=== PATIENT | male | born 1935 | race Caucasian/White ===

== ENCOUNTER 2017-09-21 02:31 | Observation (INO) ==
[2017-09-21] MEDS ORDERED: Aspirin 81 MG TAB.CHEW PO ONE (02:37)
[2017-09-21] MEDS ORDERED: Nitroglycerin 1 INCH/GM PACKET TP ONE (02:37)
[2017-09-21] MEDS ORDERED: Furosemide 40 MG/4 ML VIAL IVP ONE (02:39)
--- NOTE | 2017-09-21 02:39 | Emergency Department Note ---
Disposition Clinical Impression: Atypical chest pain Chest pain Qualifiers: Chest pain type: precordial pain Qualified Code(s): R07.2 - Precordial pain Disposition: Admitted As Inpatient Condition: Fair Referrals: Aden Freeman MD [Primary Care Provider] - Chest Pain HPI - General Stated Complaint: Chest Pain Time Seen by Provider: 09/21/17 02:37 Source: patient, family Mode of arrival: private vehicle Limitations: physical limitation (Parkinson's, persistent tremor), age Vital Signs Reviewed: Yes Nursing Notes Reviewed: Yes - History of Present Illness HPI Narrative: Patient relates she is at rest when he had onset of a midsternal chest pain about 90 minutes prior to arrival. He states that he was afraid that he was having a heart attack has come in for evaluation. He states his pain is gone away prior to his arrival. Had some mild dyspnea but no cough, fevers or chills. Denies diaphoresis or nausea. He has chronic lower extremity swelling without any new swelling or pain. He was concerned for his blood pressure and took an extra metoprolol. He denies pain radiating to his jaw, back or arms. He cannot specify any other complaints other than he just "did not feel well". He denies known history of heart disease and denies any type of previous stent or bypass. Pt complaint: chest pain Onset (ago): minute(s) (90) Duration: constant, now resolved Onset: during rest Pain Location: substernal Severity: moderate Quality: aching Pain Radiation: none Improves with: nothing Worsens with: nothing Associated symptoms: Reports: dyspnea, leg swelling (Chronic). Denies: nausea, vomiting, diaphoresis, syncope, palpitations, fever, cough Treatments prior to arrival chest pain: other (An extra metoprolol) - Related Data Home Medications Medication Instructions Recorded Confirmed Carbidopa/Levodopa [Sinemet 1 each PO TID 09/21/17 09/21/17] Metoprolol [Lopressor] 100 mg PO BID 09/21/17 09/21/17 Tamsulosin [Flomax] 0.4 mg PO DAILY 09/21/17 09/21/17 Allergies Allergy/AdvReac Type Severity Reaction Status Date / Time Penicillins Allergy Hives Verified 09/21/17 02:39 All systems ED: reviewed and negative except as stated. Chest Pain PMH - Past Medical History Medical history: Reports: cardiomyopathy, CVA, hypertension, other (Parkinson's , BPH) Surgical history: Reports: herniorrhaphy, knee replacement, orthopedic, other ( Neck surgery), other Psychiatric history: Reports: no psych history - Social History Smoking Status: Former smoker Alcohol use: Reports: none Drug use: Reports: none Physical Exam - General Limitations: physical limitation (Severe Parkinsonian tremor) General appearance: in no apparent distress, anxious - Head Head exam: atraumatic, normocephalic, normal inspection - Eye Eye exam: Present: normal appearance, PERRL, EOMI. Absent: conjunctival injection - ENT ENT exam: normal exam, normal oropharynx, mucous membranes moist - Neck Neck exam: Present: normal inspection, full ROM, trachea midline - Chest Chest inspection: Present: normal inspection, symmetric chest wall rise - Respiratory Respiratory exam: Present: normal lung sounds bilaterally. Absent: respiratory distress, wheezes, prolonged expiratory phase - Cardiovascular Cardiovascular exam: Present: regular rate, normal rhythm, normal heart sounds - Abdominal Exam Abdominal exam: Present: soft, Non-Tender, normal bowel sounds. Absent: tenderness, distention, guarding, rebound, rigidity - Extremities Exam Extremities exam: Present: full ROM, normal capillary refill, pedal edema (2+). Absent: tenderness, calf tenderness - Expanded Lower Extremity Exam Neurovascular/Tendon exam: Present: normal capillary refill. Absent: motor deficit, sensory deficit, tendon deficit Gait: not tested/not observed - Neurological Exam Neurological exam: Present: alert, oriented X3 - Psychiatric Psychiatric exam: Present: normal affect, normal mood - Skin Skin exam: Present: warm, dry, intact, normal color. Absent: rash, cyanosis, diaphoresis, pallor Course Course Narrative: 0400: All testing has been discussed with the patient and his family. Family contacted to Dr. Gould is agreeable with his inpatient observation. The patient remains currently chest pain-free. Verbal orders have been obtained for his observation period Vital Signs Temperature 97.3 F L 09/21/17 02:33 Pulse Rate 73 09/21/17 02:33 Respiratory Rate 18 09/21/17 02:33 Blood Pressure 129/93 09/21/17 02:33 O2 Sat by Pulse Oximetry 98 09/21/17 02:33 Temperature 97.3 F L 09/21/17 02:33 Pulse Rate 78 09/21/17 03:56 Respiratory Rate 20 09/21/17 03:56 Blood Pressure 146/71 09/21/17 03:56 O2 Sat by Pulse Oximetry 99 09/21/17 03:56 Oxygen Delivery Oxygen Delivery Nasal Cannula Chest Pain - Differential Diagnosis Likely: atypical chest pain, chest pain - Medical Records Medical records reviewed: Yes I reviewed the patient's medical records. - Lab Data Lab results reviewed: Yes I reviewed the patient's lab results. Result diagrams: 09/21/17 02:35 09/21/17 02:35 Lab Results 09/21/17 09/21/17 09/21/17 Range/Units 02:35 02:35 02:35 WBC 3.9 L (4.3-11.1) K/mcL RBC 3.98 L (4.19-5.50) M/mcL Hgb 12.4 L (12.9-16.9) g/dL Hct 37.6 (37.5-50.1) % MCV 94.5 (83.0-100.0) fL MCH 31.2 (28.0-33.3) pg MCHC 33.0 (31.6-35.5) g/dL RDW 13.3 (11.5-14.5) % Plt Count 182 (140-400) K/mcL MPV 10.9 (9.4-12.4) fL Immature Gran % 0.8 (0-4) % Seg Neutrophils % 56.3 % Lymphocytes % 25.2 % Monocytes % 12.3 % Eosinophils % 4.9 % Basophils % 0.5 % Neutrophils # 2.2 (1.6-8.9) K/mcL Lymphocytes # 1.0 (0.6-4.6) K/mcL Monocytes # 0.5 (0.0-1.3) K/mcL Eosinophils # 0.2 (0.0-0.6) K/mcL Basophils # 0.0 (0.0-0.2) K/mcL PT 12.9 H (9.4-12.1) Seconds INR 1.2 APTT 29.5 (26.0-36.0) Seconds Sodium (136-145) mEq/L Potassium (3.5-4.5) mEq/L Chloride (98-109) mEq/L Carbon Dioxide (19-29) mEq/L BUN (8-26) mg/dL Creatinine (0.72-1.25) mg/dL Est GFR ( Amer) (> 60) Est GFR (Non-Af Amer) (> 60) BUN/Creatinine Ratio (6-26) Glucose (70-99) mg/dL Calculated Osmolality (280-300) Calcium (8.6-10.8) mg/dL Troponin I (0-0.03) ng/mL B-Natriuretic Peptide 316 H (0-100) pg/mL 09/21/17 09/21/17 Range/Units 02:35 02:35 WBC (4.3-11.1) K/mcL RBC (4.19-5.50) M/mcL Hgb (12.9-16.9) g/dL Hct (37.5-50.1) % MCV (83.0-100.0) fL MCH (28.0-33.3) pg MCHC (31.6-35.5) g/dL RDW (11.5-14.5) % Plt Count (140-400) K/mcL MPV (9.4-12.4) fL Immature Gran % (0-4) % Seg Neutrophils % % Lymphocytes % % Monocytes % % Eosinophils % % Basophils % % Neutrophils # (1.6-8.9) K/mcL Lymphocytes # (0.6-4.6) K/mcL Monocytes # (0.0-1.3) K/mcL Eosinophils # (0.0-0.6) K/mcL Basophils # (0.0-0.2) K/mcL PT (9.4-12.1) Seconds INR APTT (26.0-36.0) Seconds Sodium 142 (136-145) mEq/L Potassium 5.0 H (3.5-4.5) mEq/L Chloride 105 (98-109) mEq/L Carbon Dioxide 27 (19-29) mEq/L BUN 17 (8-26) mg/dL Creatinine 0.91 (0.72-1.25) mg/dL Est GFR ( Amer) > 60 (> 60) Est GFR (Non-Af Amer) > 60 (> 60) BUN/Creatinine Ratio 19 (6-26) Glucose 102 H (70-99) mg/dL Calculated Osmolality 296 (280-300) Calcium 9.2 (8.6-10.8) mg/dL Troponin I 0.00 (0-0.03) ng/mL B-Natriuretic Peptide (0-100) pg/mL - Radiology Data Radiology results reviewed: Yes I reviewed the patient's radiology results. Single view chest x-ray is performed. This does not demonstrate evidence for infiltrate, effusion, pneumothorax, foreign body or heart failure. The cardiac silhouette is mildly enlarged. I do not see abnormality to the osseous structures of the chest. This is on my interpretation. Impressions Chest X-Ray 09/21/17 02:37 IMPRESSION: Negative portable chest. D/ / Doc Campbell MD / Doc Campbell MD Interpreting Provider: Doc Campbell MD - EKG Data EKG attestation: Yes I reviewed and interpreted this EKG. EKG shows normal: sinus rhythm, intervals, ST-T waves [place]/QRS: left axis deviation, LBBB Interpretation: no acute changes Heart Score - Score History: Moderately Suspicious EKG: Non Specific repolarisation Disturbance Age: Greater than 65 Risk Factors: 1-2 risk factors Troponin: Less than normal limit HEART Score Total: 5
[2017-09-21 02:47] LABS: Basophils % 0.5 %; Eosinophils # 0.2 K/mcL (0.0-0.6); Eosinophils % 4.9 %; Hematocrit 37.6 % (37.5-50.1); Hemoglobin 12.4 g/dL (12.9-16.9); Immature Granulocytes % 0.8 % (0-4); Lymphocytes % 25.2 %; Mean Corpuscular Hemoglobin 31.2 pg (28.0-33.3); Mean Corpuscular Volume 94.5 fL (83.0-100.0); Mean Platelet Volume 10.9 fL (9.4-12.4); Monocytes # 0.5 K/mcL (0.0-1.3); Monocytes % 12.3 %; Neutrophils # 2.2 K/mcL (1.6-8.9); Platelet Count 182 K/mcL (140-400); Red Blood Count 3.98 M/mcL (4.19-5.50); Red Cell Distribution Width 13.3 % (11.5-14.5); Segmented Neutrophils % 56.3 %
[2017-09-21 02:52] LABS: INR 1.2; Prothrombin Time 12.9 Seconds (9.4-12.1)
[2017-09-21 02:54] LABS: Activated Partial Thrombo Time 29.5 Seconds (26.0-36.0)
[2017-09-21 03:02] LABS: BUN/Creatinine Ratio 19 (6-26); Blood Urea Nitrogen 17 mg/dL (8-26); Calcium 9.2 mg/dL (8.6-10.8); Carbon Dioxide 27 mEq/L (19-29); Chloride 105 mEq/L (98-109); Glucose 102 mg/dL (70-99); Osmolality,Calculated 296 (280-300); Sodium 142 mEq/L (136-145); eGFR For African Americans > 60 (> 60); eGFR For Non-African Americans > 60 (> 60)
[2017-09-21] MEDS ORDERED: Naloxone 0.4 MG/ML INJ IVP PRN (04:50)
[2017-09-21] MEDS ORDERED: Acetaminophen 325 MG TABLET PO PRN (04:50)
[2017-09-21] MEDS ORDERED: Furosemide 20 MG TABLET PO PRN (04:50)
[2017-09-21] MEDS ORDERED: Ondansetron 4 MG/2 ML VIAL IVP PRN (04:50)
[2017-09-21] MEDS ORDERED: MOM Conc 10 ML UD.LIQ PO PRN (04:50)
[2017-09-21] MEDS ORDERED: Nitroglycerin 1 INCH/GM PACKET TP SCH (06:00)
--- NOTE | 2017-09-21 11:49 | Internal Med History&Physical ---
Date of Encounter: 09/21/17 Time of Encounter: 11:15 Assessment and Plan (1) Chest pain Current visit: Yes Status: Acute Doubt myocardial ischemic pain based on history and physical. Repeat cardiac enzymes were ordered through emergency room. Qualifiers: Chest pain type: precordial pain Qualified Code(s): R07.2 - Precordial pain (2) Anemia Current visit: Yes Status: Acute We will order anemia testing. He states he uses occasional OTC aspirin and NSAIDs. Qualifiers: Anemia type: unspecified type Qualified Code(s): D64.9 - Anemia, unspecified (3) Parkinsons disease Current visit: No Status: Chronic He reports wearing off phenomenon at the end of his dosing interval. I will change him to Sinemet CR. (4) B12 deficiency Current visit: No Status: Chronic We will check anemia testing as per above. Internal Medicine - H&P: HPI Chief complaint: Chest pain Admitted From: Home Plans for Post Hospital Care: Home History of present illness: Mr. Schwab is a 82 year old male who came to emergency room stating he was awakened from sleep with severe discomfort in his chest. He reports it to be a "pressure pain" that radiated from his right chest to his left chest. The episodes lasted a few seconds and then resolved but would recur after a few seconds to minutes. After approximately 90 minutes he decided to come to the emergency room. He was evaluated and admitted to [facility] floor for ongoing care needs. He denies previous similar episodes of pain. He feels back to his baseline now. He does not get chest pain on the minimal amount of exertion he does. He gets dyspneic climbing steps at home and his legs have become noticeably more edematous in the past few weeks. His cardiovascular history is significant for hypertension. He denies CA heart failure DVT or pulmonary embolus. He claims his last EST was approximately 2013 and was unremarkable. Past Med Surg Social Fam HX - Past Medical History Medical history: cardiomyopathy, CVA, hypertension, other Psychiatric history: no psych history - Past Surgical History Surgical History: herniorrhaphy, knee replacement, orthopedic, other, other - Social History Smoking Status: Former smoker Smokeless Tobacco Status: No Alcohol use: none Drug use: none - Family History Brother Living Status: Hx Family Endocrine Disorder: Yes Internal Medicine - H&P: Meds Carbidopa/Levodopa [Sinemet 10/100] 1 each PO TID 09/21/17 [History] Metoprolol [Lopressor] 100 mg PO BID 09/21/17 [History] Tamsulosin [Flomax] 0.4 mg PO DAILY 09/21/17 [History] 3 Allergy/AdvReac Type Severity Reaction Status Date / Time Penicillins Allergy Hives Verified 09/21/17 02:39 All Systems PM: A 10-system review of systems was performed and is negative for pertinent findings except as documented above in the HPI. Review of systems: Review of systems from his December 2015 [facility] hospitalization were reviewed and revised as below. Gen.: His weight has decreased from 97.522 kg on 12/27/2015 to 93.44 kg on admission now. Cardiovascular: As per history of present illness Respiratory: He smoked from age [age] up to 2 packs per day. He does not wear home oxygen and has not been diagnosed with chronic lung disease. GI: He has history of esophageal strictures requiring dilatation on 2 occasions in the past. He denies disorders of his liver gallbladder or exocrine pancreas : He has BPH and is on Flomax. He denies other kidney or bladder disorders. Neurologic: He has been diagnosed with Parkinson's disease and is on Sinemet. He has old left basal ganglia infarct. Endocrine: He had a thyroid nodule removed in 2007 has not had recurrence. He denies diabetes or hyperlipidemia Hematology/oncology: Denies blood disorders or cancers. He had low B12 level at 170 December 2015 hospitalization and received an IM injection of B12. He reports his PCP has not continued oral/IM B12. Psychiatric: He has depression but no significant anxiety other mental health issues Musk skeletal: He has arthritis and history of gout. - Constitutional Vitals: Temp Pulse Resp BP Pulse Ox 97.7 F 63 18 90/61 95 09/21/17 09:10 09/21/17 09:10 09/21/17 09:10 09/21/17 09:10 09/21/17 09:10 Exam: Gen.: He is a well-developed well-nourished male lying in bed who appears in no acute distress at present time HEENT: Head is atraumatic and normocephalic. Eyes: EOMI. There is no scleral icterus. Mouth: Mucosa is moist. Neck: Supple and nontender. There is no thyromegaly or adenopathy noted. Heart: Regular without murmurs gallops or ectopics. Tones are soft Lungs: No wheezes or crackles are heard. Chest: He is not tender in his chest wall to palpation. Abdomen: Soft and nontender. No masses or guarding are noted. Extremities: There is no cyanosis or clubbing noted. He has 1-2+ edema of the dorsum of the feet and lower anterior shins bilaterally. Dorsalis pedis and posttibial pulses are nonpalpable due to the edema. Neurologic: Mental status: He is talkative and a good historian. Cranial nerves : Smile is symmetric. Forehead wrinkles bilaterally. Tongue protrudes midline. EOMI. Motor: He has significant Parkinson tremor of his arms at rest. There is no pronator drift. Cerebellar: Finger to nose intact bilaterally. Skin: Warm and dry Internal Med - H&P Results - Labs CBC & Chem 7: 09/21/17 02:35 09/21/17 02:35 Labs: Cardiac Enzymes 09/21/17 Range/Units 06:25 Troponin I 0.00 (0-0.03) ng/mL - VTE Documentation of Mechanical Device: Graduated compression elastic hosiery
[2017-09-21] MEDS: Isosorbide MONOnitrate (24 HR) 30 MG TAB.ER.24H PO SCH (12:43)
[2017-09-21] MEDS: Bumetanide 1 MG TABLET PO SCH (12:43)
[2017-09-21] MEDS: Carbidopa/Levodopa ER 50/200 TABLET PO SCH ×2 (12:44→21:30)
--- NOTE | 2017-09-21 13:14 | Electrocardiograph Report ---
[address] [place], [place] [address] Test Date: 2017-09-21 Pat Name: Rodrigo Schwab Department: 9201 Room: [facility] Gender: M Dental Service Technician: Robyn : 1935 Requested By: Jeffery Huizar Order Number: [id number] Reading MD: Hugh Gunter MD Measurements Intervals [place] Rate: 62 P: [place]: 0 QRS: -34 QRSD: 160 T: 73 QT: 467 QTc: 473 Interpretive Statements PROBABLE SINUR RHYTHM MARKED LEFT AXIS DEVIATION LEFT BUNDLE BRANCH BLOCK BASELINE ARTIFACT COMPLICATES ACCURATE INTERPRETATION BASELINE ARTIFACT, REPEAT EKG Electronically Signed On 09-21-2017 13:12:35 EST by Hugh Gunter MD
[2017-09-21] MEDS ORDERED: Bisacodyl 10 MG RECTAL SUPPOSITORY RC PRN (20:42)
[2017-09-21 22:01] LABS: % Iron Saturation 25 % (20-55); Iron 79 mcg/dL (65-175); Transferrin 223 mg/dL (174-364)
[2017-09-21 22:23] LABS: Ferritin 216 ng/ml (22-275)
[2017-09-22] MEDS: Carbidopa/Levodopa ER 50/200 TABLET PO SCH ×2 (05:15→10:47)
[2017-09-22 06:06] LABS: Basophils % 0.5 %; Eosinophils # 0.2 K/mcL (0.0-0.6); Eosinophils % 4.4 %; Hematocrit 37.9 % (37.5-50.1); Hemoglobin 12.4 g/dL (12.9-16.9); Immature Granulocytes % 0.5 % (0-4); Lymphocytes % 18.4 %; Mean Corpuscular HGB Conc 32.7 g/dL (31.6-35.5); Mean Corpuscular Hemoglobin 30.7 pg (28.0-33.3); Mean Corpuscular Volume 93.8 fL (83.0-100.0); Mean Platelet Volume 11.4 fL (9.4-12.4); Monocytes # 0.6 K/mcL (0.0-1.3); Neutrophils # 3.6 K/mcL (1.6-8.9); Platelet Count 192 K/mcL (140-400); Red Blood Count 4.04 M/mcL (4.19-5.50); Red Cell Distribution Width 13.3 % (11.5-14.5); Segmented Neutrophils % 66.2 %
[2017-09-22 07:29] VITALS: BP 104/61
[2017-09-22] MEDS: Bumetanide 1 MG TABLET PO SCH (09:13)
[2017-09-22] MEDS: Isosorbide MONOnitrate (24 HR) 30 MG TAB.ER.24H PO SCH (09:13)
--- NOTE | 2017-09-22 10:17 | Discharge Summary ---
Date of Encounter: 09/22/17 Time of Encounter: 10:05 - Discharge Diagnosis (1) Chest pain Priority: Primary Status: Resolved Qualifiers: Chest pain type: precordial pain Qualified Code(s): R07.2 - Precordial pain (2) Anemia Priority: Secondary Status: Acute Qualifiers: Anemia type: unspecified type Qualified Code(s): D64.9 - Anemia, unspecified (3) Parkinsons disease Priority: Secondary Status: Chronic (4) B12 deficiency Priority: Secondary Status: Chronic (5) Elevated brain natriuretic peptide (BNP) level Priority: Secondary Status: Acute - Discharge Medications Prescriptions: Bumetanide [Bumex] 0.5 mg PO DAILY #15 tablet Isosorbide MONOnitrate (24 HR) [Imdur] 30 mg PO DAILY #30 tab.er.24h Home Medications: Carbidopa/Levodopa 10/100 [Sinemet 10/100] 1 each PO TID 09/21/17 [History] Metoprolol [Lopressor] 100 mg PO BID 09/21/17 [History] Tamsulosin [Flomax] 0.4 mg PO DAILY 09/21/17 [History] Bumetanide [Bumex] 0.5 mg PO DAILY #15 tablet 09/22/17 [Rx] Isosorbide MONOnitrate (24 HR) [Imdur] 30 mg PO DAILY #30 tab.er.24h 09/22/17 [ Rx] Allergies/Adverse Reactions: 3 Allergy/AdvReac Type Severity Reaction Status Date / Time Penicillins Allergy Hives Verified 09/21/17 02:39 Date of admission: 09/21/17 04:20 Primary care physician: Aden Freeman MD - Patient Status Disposition: Home, Self-Care Condition: Fair Functional capacity at discharge: uses cane/walker Overall status at discharge: patient is progressing back to baseline - Discharge Instructions Follow Up With: Aden Freeman MD [Primary Care Provider] - 1 week Forms: ED Satisfaction Letter - Diet and Activity Activity: resume usual activities as tolerated Diet: advance to your usual diet Hospital course: Mr. Schwab is a 82 year old male who came to emergency room stating he was awakened from sleep with severe discomfort in his chest. He reports it to be a "pressure pain" that radiated from his right chest to his left chest. The episodes lasted a few seconds and then resolved but would recur after a few seconds to minutes. After approximately 90 minutes he decided to come to the emergency room. He was evaluated and admitted to [facility] for ongoing care needs. Initial orders were written by the emergency room physician. I saw him on September 21 and performed a history and physical. Repeat cardiac enzymes showed no evidence of myocardial damage. When I saw him I did not think pain was likely be myocardial ischemic origin. I started him on Imdur for elevated BNP and chest pain. He was given oral Bumex for elevated BNP peptide with edema. BN peptide returned to normal range at 80 by day of discharge. He will continue these medications at discharge. Anemia testing was ordered and showed no factor deficiency. His hemoglobin remained unchanged at 12.4 on the day of discharge. He was given Sinemet CR during hospitalization without improvement in his Parkinson's tremor. He will revert back to his home dose of Sinemet 10/100 and follow with neurologist as scheduled in 1 week. He will also follow with his PCP Dr. Freeman within 1 week. - Time Spent with Patient Total time spent providing and/or coordinating discharge services: - Constitutional Vitals: Temp Pulse Resp BP Pulse Ox 98.4 F 56 18 104/61 91 09/22/17 07:27 09/22/17 07:27 09/22/17 07:27 09/22/17 07:27 09/22/17 07:27 - VTE Documentation of Mechanical Device: Graduated compression elastic hosiery
== END 2017-09-22 11:01 | disposition home or self-care (01) ==
LOC: INPPIK 02:31 → EMEROOPIK 02:31 → INPPIK 04:41
PROVIDERS: ADMIT Internal Medicine; ATTEND Internal Medicine